=== PATIENT | female | born 1960 | race Caucasian/White ===

== ENCOUNTER → 2016-09-20 | Outpatient (CLI) | payer OTHER ==
[2016-09-20 15:40] LABS: ABSOLUTE BASOPHILS # (AUTO) 0.1 10^3/uL (0.0-0.2); ABSOLUTE EOSINOPHILS # (AUTO) 0.2 10^3/uL (0.0-0.6); ABSOLUTE LYMPHOCYTES (AUTO) 2.1 10^3/uL (0.5-4.7); ABSOLUTE MONOCYTES (AUTO) 0.7 10^3/uL (0.1-1.4); ABSOLUTE NEUT (AUTO) 6.4 10^3/uL (1.7-8.2); BASOPHILS % (AUTO) 0.6 % (0-2); EOSINOPHILS % (AUTO) 1.9 % (0-6); HEMATOCRIT 46.2 % (36.0-47.0); HEMOGLOBIN 15.4 g/dL (12.0-15.5); LYMPHOCYTES % (AUTO) 22.2 % (13-45); MEAN CORPUSCULAR HGB CONC 33.3 g/dL (32.0-36.0); MEAN CORPUSCULAR VOLUME 87 fl (80-97); MONOCYTES % (AUTO) 7.5 % (3-13); RED BLOOD COUNT 5.31 10^6/uL (3.72-5.28); RED CELL DISTRIBUTION WIDTH 13.2 % (11.5-14.0); SEGMENTED NEUTROPHILS % (AUTO) 67.8 % (42-78); WHITE BLOOD COUNT 9.4 10^3/uL (4.0-10.5)
[2016-09-20 17:02] LABS: CREATINE KINASE MB 0.38 ng/mL (<4.55)
[2016-09-20 17:11] LABS: TROPONIN I < 0.012 ng/mL
--- NOTE | 2016-09-21 15:45 | EKG REPORT ---
SEVERITY:- NORMAL ECG - SINUS RHYTHM : Confirmed by: Yudith Farrell MD 21-Sep-2016 15:44:22
== END ==
LOC: OD 15:15
PROVIDERS: ATTEND Specialist
DX: R07.9 Chest pain, unspecified (principal); R10.9 Unspecified abdominal pain
CPT/HCPCS: 36415; 82550; 82553; 84484; 85025; 93005; 93010

== ENCOUNTER 2016-09-28 08:30 | Day surgery (SDC) | payer OTHER ==
--- NOTE | 2016-09-21 14:30 | HISTORY AND PHYSICAL E ---
History and Physical NAME: PRERNA HERNANDEZ : 1960 AGE: 56Y ADMITTED: 09/28/2016 ROOM: ADDENDUM CHIEF COMPLAINT/HISTORY: The patient presented with a chief complaint of reflux and diarrhea. She has nausea and vomiting, abdominal pain, diarrhea. Colonoscopy in 2008 showed external hemorrhoids. PAST SURGICAL HISTORY: 1. Cholecystectomy. 2. Tubal ligation. 3. Hysterectomy. MEDICATIONS: 1. Metformin. 2. Lisinopril. 3. Baby aspirin. SOCIAL HISTORY: She is . She does not smoke, does not drink. FAMILY HISTORY: Father of old age. Mom is alive, has lung disease. REVIEW OF SYSTEMS: CARDIAC: Hypertension. ENDOCRINE: Diabetes. Hypothyroid. GASTROINTESTINAL: Diarrhea, nausea, vomiting. PHYSICAL EXAMINATION: VITAL SIGNS: Blood pressure 100/60, pulse 80, respirations 20, temp is 98. HEAD, EYES, EARS, NOSE, THROAT: Normal. ABDOMEN: Soft. NEUROLOGIC: Exam negative. CONCLUSION: Reflux. PLAN: Upper scope. Admit 09/28. DICTATING PHYSICIAN: OLIVA DE LEON M.D. [id number] [id number] PHY#: [id number] ID: [id number] JOB#: [id number] ACCT: [id number] cc:OLIVA DE LEON M.D. >
--- NOTE | 2016-09-21 14:30 | HISTORY AND PHYSICAL E ---
History and Physical NAME: PRERNA HERNANDEZ : 1960 AGE: 56Y ADMITTED: 09/28/2016 ROOM: REFERRING PHYSICIAN: Dr. Khoury HISTORY: Patient presented for upper scope. Patient known to me 2008 colonoscopy was negative. She was seen in 2008 for colon screening. SURGERIES: 1. Cholecystectomy. 2. Hysterectomy. SOCIAL HISTORY: . Does not smoke, does not drink. ALLERGIES: AMPICILLIN. FAMILY HISTORY: Father is alive and well. Mom is alive and history of gallbladder disease. REVIEW OF SYSTEMS: CARDIAC: Hypertension, high cholesterol. ENDOCRINE: Diabetes. GASTROINTESTINAL: Reflux. PHYSICAL EXAMINATION: VITAL SIGNS: Blood pressure 140/80, pulse 80, respirations 20, temp is 98. HEENT: Normal. NECK: Supple. LUNGS: Clear. ABDOMEN: Soft. NEUROLOGIC: Negative. CONCLUSION: Patient with presented with nausea, abdominal pain, and vomiting. PLAN: Upper scope. DICTATING PHYSICIAN: OLIVA DE LEON M.D. [id number] [id number] PHY#: [id number] ID: [id number] JOB#: [id number] ACCT: [id number] cc:OLIVA DE LEON M.D. >
[~2016-09-28 08:30] MED LIST: EPINEPHRINE INJ 1 MG/10 ML DISP.SYRIN ONE; FLUMAZENIL INJ 0.5 MG/5 ML VIAL IV ONE; GLYCOPYRROLATE INJ 0.4 MG/2 ML VIAL ONE; NALOXONE HCL INJ/PF 0.4 MG/1 ML SDV ONE; ONDANSETRON HCL INJ/PF 4 MG/2 ML SDV ONE
[2016-09-28] MEDS: MIDAZOLAM 2 MG/2 ML INJ ONE ×3 (08:53→09:00)
[2016-09-28] MEDS: FENTANYL CITRATE INJ/PF 100 MCG/2 ML AMPUL ONE ×2 (08:55→08:59)
[2016-09-28 10:23] VITALS: BP 139/67
[2016-09-28 10:25] LABS: ABSOLUTE BASOPHILS # (AUTO) 0.1 10^3/uL (0.0-0.2); ABSOLUTE EOSINOPHILS # (AUTO) 0.1 10^3/uL (0.0-0.6); ABSOLUTE LYMPHOCYTES (AUTO) 2.1 10^3/uL (0.5-4.7); ABSOLUTE MONOCYTES (AUTO) 0.5 10^3/uL (0.1-1.4); BASOPHILS % (AUTO) 0.6 % (0-2); EOSINOPHILS % (AUTO) 1.6 % (0-6); HEMATOCRIT 40.8 % (36.0-47.0); HGB HCT DIFFERENCE 1.2; LYMPHOCYTES % (AUTO) 23.8 % (13-45); MEAN CORPUSCULAR HEMOGLOBIN 29.5 pg (27.0-33.4); MEAN CORPUSCULAR HGB CONC 34.4 g/dL (32.0-36.0); MEAN CORPUSCULAR VOLUME 86 fl (80-97); MONOCYTES % (AUTO) 6.2 % (3-13); RED BLOOD COUNT 4.76 10^6/uL (3.72-5.28); RED CELL DISTRIBUTION WIDTH 13.5 % (11.5-14.0); SEGMENTED NEUTROPHILS % (AUTO) 67.8 % (42-78); WHITE BLOOD COUNT 8.8 10^3/uL (4.0-10.5)
[2016-09-28 10:47] LABS: ALANINE AMINOTRANSFERASE 57 U/L (9-52); ALBUMIN 4.2 g/dL (3.5-5.0); ALKALINE PHOSPHATASE 72 U/L (38-126); AMYLASE 57 U/L (30-110); ANION GAP 15 (5-19); ASPARTATE AMINO TRANSFERASE 29 U/L (14-36); BILIRUBIN,DIRECT 0.1 mg/dL (0.0-0.4); BILIRUBIN,TOTAL 0.4 mg/dL (0.2-1.3); BLOOD UREA NITROGEN 13 mg/dL (7-20); CALCIUM 9.4 mg/dL (8.4-10.2); CARBON DIOXIDE 23 mmol/L (22-30); CHLORIDE 103 mmol/L (98-107); CREATININE RESULT 0.62 mg/dL (0.52-1.25); GLUCOSE 233 mg/dL (75-110); POTASSIUM 4.1 mmol/L (3.6-5.0); SODIUM 140.7 mmol/L (137-145); TOTAL PROTEIN 6.6 g/dL (6.3-8.2)
--- NOTE | 2016-09-28 12:58 | DISCHARGE SUMMARY E ---
Discharge Summary NAME: PRERNA HERNANDEZ : 1960 AGE: 56Y ADMITTED: 09/28/2016 DISCHARGED: 09/28/2016 HISTORY OF PRESENT ILLNESS: A 56-year-old female presented with nausea, vomiting, abdominal pain. Upper scope shows no ulcers. She did have moderate gastritis, severe duodenitis, mild esophagitis. FINAL DIAGNOSES: 1. Mild esophagitis. 2. Moderate gastritis. 3. Severe duodenitis. DISCHARGE PLAN: Lab studies. Hold aspirin. Soft diet. Awaiting biopsy results. Patient to see us in the office in the next few days. Discussed with the patient if she does not have colonoscopy yet, consider screening colon. DICTATING PHYSICIAN: OLIVA DE LEON M.D. [id number] [facility]#: [id number] ID: [id number] JOB#: [id number] ACCT: [id number] cc:OLIVA DE LEON M.D. >
--- NOTE | 2016-09-28 12:59 | OPERATIVE REPORT E ---
Operative Report NAME: PRERNA HERNANDEZ : 1960 AGE: 56Y DATE OF SURGERY: 09/28/2016 ROOM: PREOPERATIVE DIAGNOSES: 1. Nausea. 2. Vomiting. 3. Abdominal pain. POSTOPERATIVE DIAGNOSES: 1. Esophagitis, mild 2. Gastritis, mild. 3. Duodenitis, moderate. PROCEDURES: 1. Esophagoscopy. 2. Gastroscopy. 3. Duodenoscopy. SURGEON: OLIVA DE LEON M.D. ANESTHESIA: Patient was given Versed 4 and fentanyl 200. TISSUE REMOVED OR ALTERED: 1. Gastric biopsy. 2. Duodenal biopsy. PROCEDURE: After adequate sedation, baby scope passed under guided vision. No difficulties. Esophagoscopy: Junction at 58 cm. No stricture. No hernia. Mild esophagitis. Gastroscopy: Diffuse gastritis. Biopsy obtained for H. pylori. Duodenoscopy: Duodenal bulb shows duodenitis. Descending duodenum shows duodenitis. Multiple biopsies obtained for celiac disease. CONCLUSION: Multiple duodenal biopsies, celiac disease workup, and multiple biopsies for H. pylori. DISCHARGE PLAN: 1. Soft diet. 2. Hold aspirin. 3. Awaiting biopsy. 4. Followup office visit in the next few days. DICTATING PHYSICIAN: OLIVA DE LEON M.D. [id number] [id number] Y#: [id number] ID: [id number] JOB#: [id number] ACCT: [id number] cc:OLIVA DE LEON M.D. >
[2016-09-30 11:09] LABS: DEAMIDATED GLIADIN IGA AB 4 units (0-19); DEAMIDATED GLIADIN IGG AB 2 units (0-19); IMMUNOGLOBULIN A 2 258 mg/dL (87-352); T-TRANSGLUTAMINASE (TTG) IGG <2 U/mL (0-5)
== END 2016-09-28 10:12 | disposition home or self-care (01) ==
LOC: END 08:30
PROVIDERS: ATTEND Specialist
PROC: 0DB98ZX Excision of Duodenum, Via Natural or Artificial Opening Endoscopic, Diagnostic (ICD-10-PCS; 2016-09-28)
PROC: 0DB68ZX Excision of Stomach, Via Natural or Artificial Opening Endoscopic, Diagnostic (ICD-10-PCS; principal; 2016-09-28 09:00)
DX: K21.0 Gastro-esophageal reflux disease with esophagitis (principal); K29.70 Gastritis, unspecified, without bleeding; K29.80 Duodenitis without bleeding; I10 Essential (primary) hypertension; E78.00 Pure hypercholesterolemia, unspecified; E11.9 Type 2 diabetes mellitus without complications; Z88.1 Allergy status to other antibiotic agents
CPT/HCPCS: 43239; 36415; 82962; 82150; 83690; 85025; 80053; 83520 ×5; 88305 ×2; J2250; J3010; J2405; J0171; J2310; J3490